=== PATIENT | male | born 1990 | race Caucasian/White ===

== ENCOUNTER 2019-05-03 18:04 | Inpatient (IN) | payer OTHER ==
[2019-05-03 21:05] VITALS: BMI 27.3
--- NOTE | 2019-05-04 00:14 | HP ---
COWS - Scale Resting Pulse: 0= [place] 80 or Below Sweatin= Chills/Flushing Restless Observation: 5= Unable to Sit Still Pupil Size: 0= Normal to Room Light Bone or Joint Aches: 4=Acute Joint/Muscle Pain Runny Nose/ Eye Tearin= Runny Nose/Eyes GI Upset > 30mins: 1= Stomach Cramp Tremor Observation: 0= None Yawning Observation: 2= >3x During Session Anxiety or Irritability: 2=Irritable/Anxious Goose Flesh Skin: 0=Smooth Skin COWS Score: 17 CIWA Score - Admission Criteria [facility]ASAS Guidelines: Admission for Medically Managed Detox: Requires at least one of the followin. CIWA greater than 12 2. Seizures within the past 24 hours 3. Delirium tremens within the past 24 hours 4. Hallucinations within the past 24 hours 5. Acute intervention needed for co occurring medical disorder 6. Acute intervention needed for co occurring psychiatric disorder 7. Severe withdrawal that cannot be handled at a lower level of care (continued vomiting, continued diarrhea, abnormal vital signs) requiring intravenous medication and/or fluids 8. Admission [facility] Chief Complaint: C/O WITHDRAWAL SX'S Allergies/Adverse Reactions: Allergies Allergy/AdvReac Type Severity Reaction Status Date / Time No Known Allergies Allergy Verified 05/03/19 20:57 History of Present Illness: 28 Y.O. MALE WITH OPIOID DEPENDENCE HERE FOR DETOX. THIS IS CLIENT FIRST ADMISSION HERE. HE IS REFERRED BY [facility]. REPORTS DAILY USE OF HEROIN VIA NASAL. SINCE THE AGE OF 22.NO CLEAN TIME EXCEPT WHEN IN TXMENT. LAST USE 1 DAY AGO. NOW PRESENTS WITH WITHDRAWAL SX'S. DENIES ANY SIGNIFICANT PERIOD OF CLEAN TIME.DENIES BLACK OUT, SZ, DRUG OVERDOSE, SI/HI/AVH. LIVES WITH FAMILY, UNEMPLOYED, ON [place] Exam Limitations: No Limitations - Ebola screening Have you traveled outside of the country in the last 21 days: No (N) Have you had contact with anyone from an Ebola affected area: No Do you have a fever: No - Review of Systems Constitutional: Chills, Loss of Appetite, Malaise, Night Sweats, Changes in sleep EENT: reports: Nose Congestion Respiratory: reports: No Symptoms reported Cardiac: reports: No Symptoms Reported GI: reports: Nausea, Poor Appetite, Poor Fluid Intake, Abdominal cramping : reports: No Symptoms Reported Musculoskeletal: reports: Joint Pain Integumentary: reports: Flushing Neuro: reports: Tremors Endocrine: reports: No Symptoms Reported Hematology: reports: No Symptoms Reported Psychiatric: reports: Orientated x3, Agitated (IRRITABLE), Anxious, Depressed ( DENIES SI) Other Systems: Reviewed and Negative Patient History - Patient Medical History Hx Anemia: No Hx Asthma: No Hx Chronic Obstructive Pulmonary Disease (COPD): No Hx Cancer: No Hx Cardiac Disorders: No Hx Congestive Heart Failure: No Hx Hypertension: No Hx Hypercholesterolemia: No Hx Pacemaker: No HX Cerebrovascular Accident: No Hx Seizures: No Hx Dementia: No Hx Diabetes: No Hx Gastrointestinal Disorders: No Hx Liver Disease: No Hx Genitourinary Disorders: No Hx Sexually Transmitted Disorders: No Hx Renal Disease (ESRD): No Hx Thyroid Disease: No Hx Human Immunodeficiency Virus (HIV): No Hx Hepatitis C: No Hx Depression: No Hx Suicide Attempt: No Hx Bipolar Disorder: No Hx Schizophrenia: No Other Medical History: DENIES - Patient Surgical History Past Surgical History: Yes Other Surgical History: TONSILLECTOMY Anesthesia Reaction: No - PPD History Previous Implant?: Yes Documented Results: Negative w/proof Implanted On Prior [facility] Admission?: Yes PPD to be Administered?: No - Smoking Cessation Smoking history: Current every day smoker Have you smoked in the past 12 months: Yes Aproximately how many cigarettes per day: 20 Hx Chewing Tobacco Use: No Initiated information on smoking cessation: Yes 'Breaking Loose' booklet given: 05/04/19 - Substance & Tx. History Hx Alcohol Use: No Hx Substance Use: Yes Substance Use Type: Heroin, Marijuana Hx Substance Use Treatment: No - Substances abused Heroin Other (specify): SNIFF Frequency: Daily Amount used: 3 BAGS Age of first use: 22 Date of last use: 05/03/19 Cocaine Substance route: Smoking Frequency: 1-2 times per week Amount used: $20 Age of first use: 28 Date of last use: 04/30/19 Marijuana/Hashish Substance route: Smoking Frequency: 3-6 times per week Amount used: 8TH Age of first use: 15 Date of last use: 04/30/19 Admission Physical Exam BHS - Vital Signs Vital Signs: Vital Signs - 24 hr 05/03/19 20:57 Temperature 98.5 F Pulse Rate 59 L Respiratory 18 Rate Blood Pressure 121/71 - Physical General Appearance: Yes: Moderate Distress, Tremorous, Irritable HEENTM: Yes: EOMI, Normocephalic, Normal Voice, SHEKHAR, Pharynx Normal, Nasal Congestion, Rhinorrhea Respiratory: Yes: Chest Non-Tender, Lungs Clear, Normal Breath Sounds, No Respiratory Distress, No Accessory Muscle Use Neck: Yes: No masses,lesions,Nodules, Supple, Trachea in good position Breast: Yes: Breast Exam Deferred Cardiology: Yes: Regular Rhythm, Regular Rate, S1, S2 Abdominal: Yes: Non Tender, Soft, Increased Bowel Sounds Genitourinary: Yes: Other (no c/o) Back: Yes: Normal Inspection Musculoskeletal: Yes: full range of Motion, Gait Steady Extremities: Yes: Normal Range of Motion, Non-Tender, Tremors Neurological: Yes: Fully Oriented, Alert, Motor Strength 5/5 Integumentary: Yes: Warm, Clammy Lymphatic: Yes: Within Normal Limits - Diagnostic (1) Opioid dependence with withdrawal Status: Acute (2) Cocaine dependence, uncomplicated Status: Acute (3) Cannabis dependence with withdrawal Status: Acute (4) Nicotine dependence Status: Chronic Qualifiers: Nicotine product type: chewing tobacco Substance use status: uncomplicated Qualified Code(s): F17.220 - Nicotine dependence, chewing tobacco, uncomplicated Cleared for Admission [facility] - Detox or Rehab [facility] Level of Care: Medically Managed Detox Regimen/Protocol: Methadone Claeared for Rehab Admission: No Breathalyzer - Breathalyzer Breathalyzer: 0 Urine Drug Screen - Test Device Lot number: [id number] Expiration date: 01/01/21 - Control Is test valid?: Yes - Results Drug screen NEGATIVE: Yes Urine drug screen results: THC-Marijuana, MARTA-Cocaine, FEN-Fentanyl, MOP-Opiates Inpatient Rehab Admission - Rehab Decision to Admit Inpatient rehab admission?: No
[2019-05-04] MEDS ORDERED: MAGNESIUM CITRATE 300 ML BOTTLE PO PRN (00:18)
[2019-05-04] MEDS ORDERED: IBUPROFEN 400 MG TABLET (FP) PO PRN (00:18)
[2019-05-04] MEDS ORDERED: ONDANSETRON *ODT* 4 MG TABLET SL PRN (00:18)
[2019-05-04] MEDS ORDERED: NICOTINE POLACRILEX 4 MG GUM BUC PRN (00:18)
[2019-05-04] MEDS ORDERED: DICYCLOMINE HCL 10 MG CAPSULE PO PRN (00:18)
[2019-05-04] MEDS ORDERED: guaiFENesin 200 MG/10 ML 10 ML UNIT-DOSE CUPS PO PRN (00:18)
[2019-05-04] MEDS ORDERED: P-EPHED 60MG/TRIPROLIDI 2.5MG TABLET PO PRN (00:18)
[2019-05-04] MEDS ORDERED: MAG HYDROX/AL HYDROX/SIMETH 30 ML UNIT-DOSE CUP PO PRN (00:18)
[2019-05-04] MEDS ORDERED: traZODone HCL 100 MG TABLET (FP) PO PRN (00:18)
[2019-05-04] MEDS ORDERED: chlordiazePOXIDE HCL 25 MG CAPSULE PO PRN (00:18)
[2019-05-04] MEDS ORDERED: MENTHOL/PHENOL 1 EACH UD MM PRN (00:18)
[2019-05-04] MEDS ORDERED: MAGNESIUM HYDROX 2400MG/30ML ORAL SUSPENSION 30 ML CUP PO PRN (00:18)
[2019-05-04] MEDS ORDERED: ACETAMINOPHEN 325 MG TABLET (FP) PO PRN ×2 (00:18)
[2019-05-04] MEDS ORDERED: BISMUTH SUBSALICYLATE 524 MG/30 ML UD PO PRN (00:18)
[2019-05-04] MEDS ORDERED: MELATONIN 5 MG TABLETS PO PRN (00:18)
[2019-05-04] MEDS ORDERED: METHADONE HCL 10 MG TABLET (FOR DETOX USE ONLY) PO ONE ×2 (01:16→10:00)
[2019-05-04] MEDS ORDERED: NALOXONE HCL 0.4 MG/ML VIAL IM PRN (01:16)
[2019-05-04] MEDS ORDERED: cloNIDine HCL 0.1 MG TABLET PO PRN (01:16)
[2019-05-04] MEDS: PRENATAL VITAMINS W/ FOLIC ACID TABLET (FP) PO SCH (10:13)
[2019-05-04] MEDS: NICOTINE 21 MG/24 HOURS TOPICAL PATCH TD SCH (10:14)
--- NOTE | 2019-05-04 10:14 | EKG ---
Test Reason : Blood Pressure : / mmHG Vent. Rate : 057 BPM Atrial Rate : 057 BPM P-R Int : 132 ms QRS Dur : 088 ms QT Int : 432 ms P-R-T Axes : 064 069 003 degrees QTc Int : 420 ms SINUS BRADYCARDIA WITH SINUS ARRHYTHMIA NONSPECIFIC T WAVE ABNORMALITY ABNORMAL ECG NO PREVIOUS ECGS AVAILABLE Confirmed by Saleem Henriquez MD ([id number]) on 05/04/2019 10:13:58 AM Referred By: Confirmed By:Saleem Henriquez MD
--- NOTE | 2019-05-04 11:47 | CONSULT ---
[facility] Psychiatric Consult - Data Date of interview: 05/04/19 Admission source: [facility] Identifying data: Enrollment Advisor approached patient for psychiatric consultation. Patient stated, " I don't need to see you. I'm fine. " Psychiatric consultation refused.
[2019-05-04 12:16] LABS: HEMATOCRIT 37.6 % (35.4-49); HEMOGLOBIN 12.3 GM/dL (11.7-16.9); MCHC 32.7 g/dl (32.0-35.9); MEAN CELL VOLUME 85.7 fl (80-96); MEAN PLT VOLUME 10.1 fl (7.5-11.1); PLATELET COUNT 183 K/MM3 (134-434); RBC 4.39 M/mm3 (4.00-5.60); RDW 14.4 % (11.9-15.9)
[2019-05-04 12:46] LABS: ALBUMIN 2.9 g/dl (3.4-5.0); BILIRUBIN,TOTAL 0.2 mg/dL (0.2-1); BLOOD UREA NITROGEN 12.9 mg/dL (7-18); CALCIUM 8.1 mg/dL (8.5-10.1); CREATININE 0.8 mg/dL (0.55-1.3); TOT PROT 5.3 g/dl (6.4-8.2)
[2019-05-04] MEDS ORDERED: TRIMETHOBENZAMIDE HCL 200MG/2ML INJ IM PRN (14:53)
--- NOTE | 2019-05-04 14:55 | PN ---
[facility] COWS - Scale Resting Pulse: 0= [place] 80 or Below Sweatin= No chills or Flushing Restless Observation: 1= Difficult to Sit Still Pupil Size: 0= Normal to Room Light Bone or Joint Aches: 4=Acute Joint/Muscle Pain Runny Nose/ Eye Tearin= None GI Upset > 30mins: 2= Nausea/Diarrhea Tremor Observation of Outstretched Hands: 0= None Yawning Observation: 1= 1-2x During Session Anxiety or Irritability: 2=Irritable/Anxious Goose Flesh Skin: 3=Piloerection COWS Score: 13 BHS Progress Note (SOAP) Subjective: Anxious, Body Aches, Interrupted Sleep, Nausea. Objective: PATIENT A & O X 3, OBSERVED AMBULATING ON DETOX UNIT UNASSISTED. IN NO ACUTE DISTRESS. 05/04/19 14:50 Vital Signs Temperature 98.6 F 05/04/19 13:20 Pulse Rate 58 L 05/04/19 13:20 Respiratory Rate 16 05/04/19 13:20 Blood Pressure 114/60 05/04/19 13:20 O2 Sat by Pulse Oximetry (%) Laboratory Tests 05/04/19 05/04/19 08:45 08:45 WBC 6.0 RBC 4.39 Hgb 12.3 Hct 37.6 MCV 85.7 MCH 28.0 MCHC 32.7 RDW 14.4 Plt Count 183 MPV 10.1 Sodium 142 Potassium 4.0 Chloride 107 Carbon Dioxide 26 Anion Gap 8 BUN 12.9 Creatinine 0.8 Est GFR (CKD-EPI)AfAm 141.89 Est GFR (CKD-EPI)NonAf 122.43 Random Glucose 90 Calcium 8.1 L Total Bilirubin 0.2 AST 21 ALT 33 Alkaline Phosphatase 67 Total Protein 5.3 L Albumin 2.9 L LABS NOTED. Assessment: 05/04/19 14:51 WITHDRAWAL SYMPTOMS. HYPOCALCEMIA. 05/04/19 14:53 Plan: CONTINUE DETOX. PRN TIGAN IM FOR NAUSEA. ENSURE PO FOR CALORIC SUPPLEMENTATION. PRN ROBAXIN PO FOR BODY ACHES / MUSCLE SPASMS. PRN MELATONIN PO FOR INSOMNIA.
[2019-05-04] MEDS: METHOCARBAMOL 500 MG TABLET PO PRN (22:36)
[2019-05-04] MEDS: THIAMINE HCL 100 MG TABLET (FP) PO SCH (22:36)
[2019-05-04] MEDS: hydrOXYzine PAMOATE 25 MG CAPSULE (FP) PO PRN (22:36)
[2019-05-04] MEDS: MELATONIN 5 MG TABLETS PO PRN (22:37)
[2019-05-04] MEDS: CALCIUM 500MG/VIT-D 200 UNITS COMBO TABLET (FP) PO SCH (22:49)
[2019-05-04] MEDS ORDERED: chlordiazePOXIDE HCL 25 MG CAPSULE PO SCH (23:00)
[2019-05-05] MEDS ORDERED: METHADONE HCL 5 MG TABLET (FOR DETOX USE ONLY) ONE (09:54)
[2019-05-05] MEDS ORDERED: METHADONE HCL 10 MG TABLET (FOR DETOX USE ONLY) ONE (09:54)
[2019-05-05] MEDS ORDERED: METHADONE (DETOX) 20 MG, METHADONE (DETOX) 5 MG PO ONE (10:00)
[2019-05-05] MEDS: PRENATAL VITAMINS W/ FOLIC ACID TABLET (FP) PO SCH (10:14)
[2019-05-05] MEDS: METHOCARBAMOL 500 MG TABLET PO PRN (10:14)
[2019-05-05] MEDS: NICOTINE 21 MG/24 HOURS TOPICAL PATCH TD SCH (10:15)
[2019-05-05] MEDS: CALCIUM 500MG/VIT-D 200 UNITS COMBO TABLET (FP) PO SCH ×2 (10:15→22:21)
[2019-05-05] MEDS: hydrOXYzine PAMOATE 25 MG CAPSULE (FP) PO PRN (13:12)
--- NOTE | 2019-05-05 14:44 | PN ---
BHS COWS - Scale Resting Pulse: 0= [place] 80 or Below Sweatin= Chills/Flushing Restless Observation: 1= Difficult to Sit Still Pupil Size: 0= Normal to Room Light Bone or Joint Aches: 2= Severe Diffuse Aches Runny Nose/ Eye Tearin= None GI Upset > 30mins: 1= Stomach Cramp Tremor Observation of Outstretched Hands: 0= None Yawning Observation: 1= 1-2x During Session Anxiety or Irritability: 2=Irritable/Anxious Goose Flesh Skin: 0=Smooth Skin COWS Score: 8 BHS Progress Note (SOAP) Subjective: Body Aches, Anxious, Interrupted Sleep, Sweating, Hot / Cold Sensations. Objective: PATIENT A & O X 3, OBSERVED AMBULATING ON DETOX UNIT UNASSISTED. IN NO ACUTE DISTRESS. 05/05/19 14:45 Vital Signs Temperature 97.7 F 05/05/19 13:17 Pulse Rate 53 L 05/05/19 13:17 Respiratory Rate 18 05/05/19 13:17 Blood Pressure 107/64 05/05/19 13:17 O2 Sat by Pulse Oximetry (%) Laboratory Tests 05/04/19 05/04/19 05/04/19 08:45 08:45 08:45 WBC 6.0 RBC 4.39 Hgb 12.3 Hct 37.6 MCV 85.7 MCH 28.0 MCHC 32.7 RDW 14.4 Plt Count 183 MPV 10.1 Sodium 142 Potassium 4.0 Chloride 107 Carbon Dioxide 26 Anion Gap 8 BUN 12.9 Creatinine 0.8 Est GFR (CKD-EPI)AfAm 141.89 Est GFR (CKD-EPI)NonAf 122.43 Random Glucose 90 Calcium 8.1 L Total Bilirubin 0.2 AST 21 ALT 33 Alkaline Phosphatase 67 Total Protein 5.3 L Albumin 2.9 L RPR Titer Nonreactive LABS NOTED. Assessment: 05/05/19 14:45 WITHDRAWAL SYMPTOMS. HYPOCALCEMIA. Plan: CONTINUE DETOX. INCREASE DAILY PO WATER INTAKE. INCREASE PRN DOSE OF ROBAXIN PO TO 750 MG PO PRN FOR SEVERE BODY ACHES / MUSCLE SPASMS.
[2019-05-05] MEDS: METHOCARBAMOL 750 MG TABLET PO PRN (17:11)
[2019-05-05] MEDS: THIAMINE HCL 100 MG TABLET (FP) PO SCH (22:21)
[2019-05-05] MEDS: MELATONIN 5 MG TABLETS PO PRN (22:24)
[2019-05-06] MEDS ORDERED: chlordiazePOXIDE HCL 25 MG CAPSULE PO SCH (05:00)
[2019-05-06] MEDS: PRENATAL VITAMINS W/ FOLIC ACID TABLET (FP) PO SCH (09:48)
[2019-05-06] MEDS: NICOTINE 21 MG/24 HOURS TOPICAL PATCH TD SCH (09:48)
[2019-05-06] MEDS: CALCIUM 500MG/VIT-D 200 UNITS COMBO TABLET (FP) PO SCH (09:49)
[2019-05-06] MEDS: METHOCARBAMOL 750 MG TABLET PO PRN (09:51)
[2019-05-06] MEDS ORDERED: METHADONE HCL 10 MG TABLET (FOR DETOX USE ONLY) PO ONE (10:00)
[2019-05-06 13:07] VITALS: PULSE 57
--- NOTE | 2019-05-06 16:05 | PN ---
BHS COWS - Scale Resting Pulse: 0= HI 80 or Below Sweatin= No chills or Flushing Restless Observation: 1= Difficult to Sit Still Pupil Size: 0= Normal to Room Light Bone or Joint Aches: 1= Mild Discomfort Runny Nose/ Eye Tearin= None GI Upset > 30mins: 0= None Tremor Observation of Outstretched Hands: 0= None Yawning Observation: 1= 1-2x During Session Anxiety or Irritability: 2=Irritable/Anxious Goose Flesh Skin: 0=Smooth Skin COWS Score: 5 BHS Progress Note (SOAP) Subjective: Restless, Body Aches. Objective: PATIENT A & O X 3, OBSERVED AMBULATING ON DETOX UNIT UNASSISTED. IN NO ACUTE DISTRESS. 05/06/19 16:07 Vital Signs Temperature 98.8 F 05/06/19 13:06 Pulse Rate 57 L 05/06/19 13:06 Respiratory Rate 18 05/06/19 13:06 Blood Pressure 114/71 05/06/19 13:06 O2 Sat by Pulse Oximetry (%) Laboratory Tests 05/04/19 05/04/19 05/04/19 08:45 08:45 08:45 WBC 6.0 RBC 4.39 Hgb 12.3 Hct 37.6 MCV 85.7 MCH 28.0 MCHC 32.7 RDW 14.4 Plt Count 183 MPV 10.1 Sodium 142 Potassium 4.0 Chloride 107 Carbon Dioxide 26 Anion Gap 8 BUN 12.9 Creatinine 0.8 Est GFR (CKD-EPI)AfAm 141.89 Est GFR (CKD-EPI)NonAf 122.43 Random Glucose 90 Calcium 8.1 L Total Bilirubin 0.2 AST 21 ALT 33 Alkaline Phosphatase 67 Total Protein 5.3 L Albumin 2.9 L RPR Titer Nonreactive LABS NOTED. Assessment: 05/06/19 16:07 WITHDRAWAL SYMPTOMS. HYPOCALCEMIA. Plan: PATIENT REPORTS THAT CURRENT WITHDRAWAL / DETOX SYMPTOMS HAVE SUBSIDED CONSIDERABLY SINCE TIME OF ADMISSION AND THAT HE IS TOLERATING THEM WELL. AT PATIENT'S REQUEST, CURRENT DETOX MEDICATION REGIMEN MODIFIED SO THAT PATIENT MAY BE DISCHARGED TOMORROW, 05/07/2019.
[2019-05-06 18:01] VITALS: BP 110/66; TEMP 97.5
--- NOTE | 2019-05-06 18:33 | PN ---
[facility] Progress Note Note: Report received regarding investigation in which patient provided unknown substance in which he brought on to the unit to a male patient. Patient also offered unknown substance to a female patient on the unit in two occasions ( female patient provided witness statement), with the last offering today. After case conference with RN banquet kitchen supervisor on the unit, RN in charge of patient care, security and counselor, it was deemed patient is a risk to the safety of other patients on the unit and deemed patient is to be administratively discharged by RN banquet kitchen supervisor, staff reached out to Mrs. Melita Vora program research specialist regarding current situation and were unsuccessful to contact her. Vital Signs Temperature 97.5 F L 05/06/19 18:00 Pulse Rate 57 L 05/06/19 18:00 Respiratory Rate 16 05/06/19 18:00 Blood Pressure 110/66 05/06/19 18:00 O2 Sat by Pulse Oximetry (%) Laboratory Last Values WBC 6.0 K/mm3 (4.0-10.0) 05/04/19 08:45 RBC 4.39 M/mm3 (4.00-5.60) 05/04/19 08:45 Hgb 12.3 GM/dL (11.7-16.9) 05/04/19 08:45 Hct 37.6 % (35.4-49) 05/04/19 08:45 MCV 85.7 fl (80-96) 05/04/19 08:45 MCH 28.0 pg (25.7-33.7) 05/04/19 08:45 MCHC 32.7 g/dl (32.0-35.9) 05/04/19 08:45 RDW 14.4 % (11.9-15.9) 05/04/19 08:45 Plt Count 183 K/MM3 (134-434) 05/04/19 08:45 MPV 10.1 fl (7.5-11.1) 05/04/19 08:45 Sodium 142 mmol/L (136-145) 05/04/19 08:45 Potassium 4.0 mmol/L (3.5-5.1) 05/04/19 08:45 Chloride 107 mmol/L (98-107) 05/04/19 08:45 Carbon Dioxide 26 mmol/L (21-32) 05/04/19 08:45 Anion Gap 8 MMOL/L (8-16) 05/04/19 08:45 BUN 12.9 mg/dL (7-18) 05/04/19 08:45 Creatinine 0.8 mg/dL (0.55-1.3) 05/04/19 08:45 Est GFR (CKD-EPI)AfAm 141.89 05/04/19 08:45 Est GFR (CKD-EPI)NonAf 122.43 05/04/19 08:45 Random Glucose 90 mg/dL (74-106) 05/04/19 08:45 Calcium 8.1 mg/dL (8.5-10.1) L 05/04/19 08:45 Total Bilirubin 0.2 mg/dL (0.2-1) 05/04/19 08:45 AST 21 U/L (15-37) 05/04/19 08:45 ALT 33 U/L (13-61) 05/04/19 08:45 Alkaline Phosphatase 67 U/L (45-117) 05/04/19 08:45 Total Protein 5.3 g/dl (6.4-8.2) L 05/04/19 08:45 Albumin 2.9 g/dl (3.4-5.0) L 05/04/19 08:45 RPR Titer Nonreactive (NONREACTIVE) 05/04/19 08:45 Patient reports no s/s of withdrawals at this time, no SI/HI Patient AOx3 no acute distress EENT WNL no adventitious breath sounds full ROM, no gait distance urine tox results + MTD, THC v/s WNL Patient is domicile, patient to follow with referral to [facility] Patient to follow up with primary care provider, if worsening symptoms are present to seek medical attention Patient in agreement with current decisions Patient was escorted off the unit, provided a copy of his rights to appeal and given his property
--- NOTE | 2019-05-06 18:50 | DS ---
[facility] Detox Discharge Summary Admission Date: 05/04/19 Discharge Date: 05/06/19 - History Present History: Cocaine Dependence, Opioid Dependence Additional Comments: Patient medically stable. Administratively discharge. Patient to follow up with with referral to [facility]. Follow up with PCP. If worsening symptoms are present to seek medical attention or call 911. - Physical Exam Results Vital Signs: Vital Signs Temperature 97.5 F L 05/06/19 18:00 Pulse Rate 57 L 05/06/19 18:00 Respiratory Rate 16 05/06/19 18:00 Blood Pressure 110/66 05/06/19 18:00 O2 Sat by Pulse Oximetry (%) Pertinent Admission Physical Exam Findings: Vital Signs Temperature 97.5 F L 05/06/19 18:00 Pulse Rate 57 L 05/06/19 18:00 Respiratory Rate 16 05/06/19 18:00 Blood Pressure 110/66 05/06/19 18:00 O2 Sat by Pulse Oximetry (%) Laboratory Last Values WBC 6.0 K/mm3 (4.0-10.0) 05/04/19 08:45 RBC 4.39 M/mm3 (4.00-5.60) 05/04/19 08:45 Hgb 12.3 GM/dL (11.7-16.9) 05/04/19 08:45 Hct 37.6 % (35.4-49) 05/04/19 08:45 MCV 85.7 fl (80-96) 05/04/19 08:45 MCH 28.0 pg (25.7-33.7) 05/04/19 08:45 MCHC 32.7 g/dl (32.0-35.9) 05/04/19 08:45 RDW 14.4 % (11.9-15.9) 05/04/19 08:45 Plt Count 183 K/MM3 (134-434) 05/04/19 08:45 MPV 10.1 fl (7.5-11.1) 05/04/19 08:45 Sodium 142 mmol/L (136-145) 05/04/19 08:45 Potassium 4.0 mmol/L (3.5-5.1) 05/04/19 08:45 Chloride 107 mmol/L (98-107) 05/04/19 08:45 Carbon Dioxide 26 mmol/L (21-32) 05/04/19 08:45 Anion Gap 8 MMOL/L (8-16) 05/04/19 08:45 BUN 12.9 mg/dL (7-18) 05/04/19 08:45 Creatinine 0.8 mg/dL (0.55-1.3) 05/04/19 08:45 Est GFR (CKD-EPI)AfAm 141.89 05/04/19 08:45 Est GFR (CKD-EPI)NonAf 122.43 05/04/19 08:45 Random Glucose 90 mg/dL (74-106) 05/04/19 08:45 Calcium 8.1 mg/dL (8.5-10.1) L 05/04/19 08:45 Total Bilirubin 0.2 mg/dL (0.2-1) 05/04/19 08:45 AST 21 U/L (15-37) 05/04/19 08:45 ALT 33 U/L (13-61) 05/04/19 08:45 Alkaline Phosphatase 67 U/L (45-117) 05/04/19 08:45 Total Protein 5.3 g/dl (6.4-8.2) L 05/04/19 08:45 Albumin 2.9 g/dl (3.4-5.0) L 05/04/19 08:45 RPR Titer Nonreactive (NONREACTIVE) 05/04/19 08:45 Denies SI/HI Medically stable Aox3 no acute distress EENT WNL No adventitious breath sounds full ROM no gait abnormality - Treatment Hospital Course: Detox Protocol Followed, Detoxed Safely, Responded well, Discharged Condition Good, Rehab Referral Accepted Patient has Accepted a Rehab Referral to: [facility] - Medication Discharge Medications: Ambulatory Orders Naloxone HCl [Narcan] 4 mg NS 1XPACU #2 spray 05/06/19 - Diagnosis (1) Cannabis dependence with withdrawal Current Visit: Yes Status: Acute (2) Cocaine dependence, uncomplicated Current Visit: Yes Status: Acute (3) Opioid dependence with withdrawal Current Visit: Yes Status: Acute (4) Nicotine dependence Current Visit: Yes Status: Chronic Qualifiers: Nicotine product type: chewing tobacco Substance use status: uncomplicated Qualified Code(s): F17.220 - Nicotine dependence, chewing tobacco, uncomplicated - AMA Did Patient Leave Against Medical Advice: No
[2019-05-07] MEDS ORDERED: chlordiazePOXIDE HCL 10 MG CAPSULE PO PRN
[2019-05-07] MEDS ORDERED: chlordiazePOXIDE HCL 10 MG CAPSULE PO SCH (05:00)
[2019-05-07] MEDS ORDERED: METHADONE HCL 10 MG TABLET (FOR DETOX USE ONLY) PO ONE (06:00)
[2019-05-07] MEDS ORDERED: METHADONE (DETOX) 10 MG, METHADONE (DETOX) 5 MG PO ONE (10:00)
[2019-05-08] MEDS ORDERED: chlordiazePOXIDE HCL 10 MG CAPSULE PO SCH (05:00)
[2019-05-08] MEDS ORDERED: METHADONE HCL 10 MG TABLET (FOR DETOX USE ONLY) PO ONE (10:00)
[2019-05-09] MEDS ORDERED: chlordiazePOXIDE HCL 10 MG CAPSULE PO ONE (05:00)
[2019-05-09] MEDS ORDERED: METHADONE HCL 5 MG TABLET (FOR DETOX USE ONLY) PO ONE (06:00)
== END 2019-05-06 06:40 | disposition left against medical advice (07) | DRG 773 ==
LOC: YASAS 18:04 → Y3N 05-04 00:44
PROVIDERS: ADMIT Surgery; ATTEND Surgery
PROC: HZ2ZZZZ Detoxification Services for Substance Abuse Treatment (ICD-10-PCS; principal; 2019-05-04)
DX: F11.23 Opioid dependence with withdrawal (principal); F14.20 Cocaine dependence, uncomplicated; F12.20 Cannabis dependence, uncomplicated; F17.210 Nicotine dependence, cigarettes, uncomplicated; F91.8 Other conduct disorders; E83.52 Hypercalcemia
CPT/HCPCS: 36415; 80053; 85027; 86593; 93005; 93010; J0735